=== PATIENT | female | born 1995 | race Caucasian/White ===

== ENCOUNTER → 2024-06-03 | Outpatient (CLI) | payer OTHER, SELFPAY | PROVIDERS: PCP Family Medicine; Referring Provider Internal Medicine; Visit Provider Internal Medicine | DX: Z23 Encounter for immunization (principal) | CPT/HCPCS: 90471; 90656 ==

== ENCOUNTER → 2024-08-16 11:08 | Outpatient (CLI) | payer OTHER, SELFPAY ==
[2024-08-16 11:40] LABS: Appearance Urine UA CLEAR; Bilirubin Urine UA NEGATIVE (NEGATIVE); Color Urine UA YELLOW; Glucose Urine UA NEGATIVE (Negative); Ketones Urine UA NEGATIVE (NEGATIVE); Leukocyte Esterase Urine UA NEGATIVE (NEGATIVE); Nitrite Urine UA NEGATIVE (Negative); Occult Blood Urine UA NEGATIVE (Negative); Protein Urine UA NEGATIVE (Negative); Urobilinogen Urine UA 0.2 E.U./dL (0.2)
[2024-08-16 11:47] LABS: Add Manual Diff / Slide Review NO; Basophils Absolute Auto 100 /uL (0-100); Basophils Percent Auto 0.6 % (0-2); Eosinophils Absolute Auto 100 /uL (0-450); Eosinophils Percent Auto 0.8 % (2-4); Hematocrit 43.5 % (36-46); Hemoglobin 14.8 g/dL (12.0-16.0); Lymphocytes Absolute Auto 1900 /uL (1100-4500); Lymphocytes Percent Auto 18.1 % (25-40); Mean Corpuscular Hemoglobin 30.1 PG (26-34); Mean Corpuscular Volume 88.3 fL (80-100); Monocytes Absolute Auto 600 /uL (0-900); Monocytes Percent Auto 5.6 % (3-14); Neutrophils Absolute Auto 8000 /uL (1500-7000); Neutrophils Percent Auto 74.9 % (50-75); Platelet Count 304 X10^3/uL (150-400); Red Blood Cell Count 4.92 X10^6/uL (4.0-5.2); White Blood Cell Count 10.7 X10^3/uL (4.5-11.0)
[2024-08-16 12:44] LABS: Hepatitis B Surface Antigen NEGATIVE s/c (NEGATIVE); Rubella Antibody IgG 70.8 IU/mL (>15)
[2024-08-16 12:57] LABS: HIV 1 & 2 Ab/Ag 4th Gen Combo NEGATIVE (NEGATIVE); Hep C Virus Ab w/Reflex Quant NEGATIVE s/c (NEGATIVE)
[2024-08-17 05:08] LABS: RPR Screen Non Reactive (Non Reactive)
[2024-08-17 07:38] LABS: Varicella IgG Antibody Non Reactive (Non Reactive)
== END ==
PROVIDERS: PCP Family Medicine; Referring Provider Student in an Organized Health Care Education/Training Program; Visit Provider Student in an Organized Health Care Education/Training Program
DX: Z34.00 Encounter for supervision of normal first pregnancy, unspecified trimester (principal)
CPT/HCPCS: 36415; 80055; 81003; 86787; 86803; 86850; 86900; 86901; 87086; 87389

== ENCOUNTER → 2024-09-14 16:38 | Outpatient (CLI) | payer OTHER, SELFPAY ==
[2024-09-14 18:26] LABS: Natera Collection Specimen Collected
== END ==
PROVIDERS: PCP Family Medicine; Referring Provider Student in an Organized Health Care Education/Training Program; Visit Provider Student in an Organized Health Care Education/Training Program
DX: Z34.01 Encounter for supervision of normal first pregnancy, first trimester (principal)
CPT/HCPCS: 36415

== ENCOUNTER → 2024-11-11 08:04 | Outpatient (CLI) | payer OTHER, SELFPAY ==
--- NOTE | 2024-11-11 08:05 | DI.US.S_ITS ---
PROCEDURE: US OB >= 14 WEEKS FETUS INDICATIONS: anatomy scan OUTSIDE/PRIOR DATING DATA: LMP-based estimated date of delivery (ASHA): 03/23/25. First dating scan (date and location): This study. Estimated date of delivery (ASHA) from first dating scan: 03/24/25. TECHNIQUE: Real-time scanning was performed of the fetus, with image documentation and biometric measurements. Endovaginal scanning: Not needed COMPARISON: None. FINDINGS: General: A single living intrauterine gestation is present. Presentation: Vertex. Placenta: Placental position is posterior , without previa. Amniotic fluid index: 15.3 cm, normal range is 5-24 cm. Single deepest vertical pocket is 5.0 cm. heart rate: 153 beats per minute. Maternal cervical canal: 2.6 cm long. Normal lower limit is 2.5 cm. biometrics: Biparietal diameter: 5.3 cm, 22 weeks 0 days Head circumference: 19.9 cm, 22 weeks 0 days Abdominal circumference: 18.1 cm, 23 weeks 0 days Femur length: 3.5 cm, 21 weeks 1 day Clinically estimated gestational age: 21 weeks 1 day Composite gestational age from present scan: 22 weeks 0 days, appropriate growth. Estimated weight and percentile: 478 g, 91st percentile Anatomic survey: Neuro: Ventricles are non-dilated at less than 10 mm. Cisterna magna is normal at 3-11 mm. Cerebellum is normal in size and morphology. Nuchal skin fold: Normal at less than 6 mm between 14-21 weeks gestational age. Face: Nose and lips, facial profile are normal. Spine: No evidence for spina bifida. Heart: 4-chambered heart is present, with normal ventricular outflow tracts. Diaphragm: Diaphragm is intact. Stomach: Left-sided stomach is present. Kidneys: No hydronephrosis. Normal is less than 5 mm in 2nd trimester, less than 7 mm in 3rd trimester. Cord: 3-vessel cord has orthotopic insertion. Bladder: Normal in size. Extremities: All 4 extremities identified. IMPRESSION: Single living intrauterine gestation, no anomaly seen. The delivery date is projected to be centered on 03/24/25. Normal amniotic fluid volume, posterior placenta, vertex presentation. We strive to produce accurate, complete, and clear reports of imaging services. To assist us in improving patient care, this report was composed using standard report templates and voice recognition software. Therefore, it may contain abnormal punctuation, insertions and/or omissions. Occasional wrong-word or sound-alike substitutions may occur. Though we review the report and make efforts to correct it, we do recommend that the report be read carefully in proper context to recognize any text inaccuracies. Dictated by: Jose Juan Mancuso M.D. on 11/11/2024 at 13:35 Approved by: Jose Juan Mancuso M.D. on 11/11/2024 at 13:39
== END ==
PROVIDERS: PCP Family Medicine; Referring Provider Student in an Organized Health Care Education/Training Program; Visit Provider Student in an Organized Health Care Education/Training Program
DX: Z34.92 Encounter for supervision of normal pregnancy, unspecified, second trimester (principal); Z3A.22 22 weeks gestation of pregnancy
CPT/HCPCS: 76811